=== PATIENT | female | born 2000 | race Caucasian/White ===

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

== ENCOUNTER 2022-01-24 12:51 | Emergency (ER) | payer OTHER, SELFPAY ==
[2022-01-24 12:53] VITALS: BP 135/100; PULSE 116; RESP 18; TEMP 36.4; O2SAT 98; BMI 22.1
[2022-01-24 13:52] VITALS: RESP 14
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
[2022-01-24] MEDS: LORazepam 2 MG/ML Syringe 1 MG IM (14:23)
[2022-01-24] MEDS: Ziprasidone IM 20 MG/ML VIAL IM (14:23)
[2022-01-24 14:52] VITALS: RESP 14
[2022-01-24 15:52] VITALS: RESP 16
[2022-01-24 16:05] LABS: Absolute Lymphocyte Count 1.15 X10^3/uL (0.83-4.51); Absolute Neutrophil Count 4.9 X10^3/uL (2.0-7.7); Basophil# 0.03 X10^3/uL; Basophil% 0.5 % (0-1); Eosinophil# 0.05 X10^3/uL; Eosinophils% 0.8 % (0-5); Hematocrit 38.7 % (37-47); Hemoglobin 12.9 g/dL (12.0-15.0); Lymphocyte # 1.15 X10^3/ul (0.83-4.51); Lymphocyte % 17.5 % (19-41); Mean Corp Hgb Conc 33.3 g/dL (32-36); Mean Corpuscular Hgb 29.9 pg (27.0-32.0); Mean Corpuscular Volume 89.6 fL (81-99); Mean Platelet Vol. 10.1 fl (6.2-12.0); Monocyte# 0.44 X10^3/uL; Monocyte% 6.7 % (0-10); NRBC Flagged by Analyzer 0 % (0-5); Neutrophil % 74.2 % (47-70); Platelet Count 222 K/mm3 (150-450); RBC Distribution Width CV 13.2 % (11.6-14.6); RBC Distribution Width SD 43.6 fl (35.1-43.9); Red Blood Count 4.32 M/mm3 (4.2-5.4); White Blood Count 6.6 K/mm3 (4.4-11.0)
[2022-01-24 16:21] LABS: Anion Gap 6 (5-15); BUN 15 mg/dL (7-18); BUN/Creat Ratio 19.3 RATIO (10-20); Chloride 110 mmol/L (98-107); Creatinine, Serum 0.78 mg/dL (0.55-1.02); EST Glomerular Filtration Rate 98 mL/min (>60); Est Glom Filt Rate - Afr Amer 119 mL/min (>60); Estimated Creatinine Clearance 81.95 ml/min; Glucose 79 mg/dL (74-106); Potassium 3.7 mmol/L (3.5-5.1); Sodium Level 140 mmol/L (136-145)
[2022-01-24 16:41] LABS: Internal QC Validated? YES +Cl - CLEAR BKGD; Pregnancy, Serum, hCG Quali. NEGATIVE Negative
[2022-01-24 16:55] LABS: Alcohol, Blood (Medical)-Serum < 3.0 mg/dL
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
[2022-01-24 17:57] VITALS: BP 119/85; PULSE 98; RESP 16; O2SAT 98
[2022-01-24 19:34] LABS: Amphetamine Urine VISTA NEGATIVE (<1000 ng/mL); Barbiturate Urine VISTA NEGATIVE (< 200 ng/mL); Benzodiazepine Urine VISTA NEGATIVE (< 200 ng/mL); Cocaine Urine VISTA NEGATIVE (< 300 ng/mL); Ecstacy Urine VISTA NEGATIVE (< 500 ng/mL); Methadone Urine VISTA NEGATIVE (< 300 ng/mL); PCP Urine VISTA NEGATIVE (< 25 ng/mL); THC Urine VISTA POSITIVE (< 50 ng/mL); Vista UDS pH Range 5
[2022-01-25 00:20] VITALS: BP 108/72; PULSE 72; RESP 16; O2SAT 98
[2022-01-25 03:18] VITALS: BP 104/60; PULSE 70; RESP 16
[2022-01-25 04:42] VITALS: RESP 18
[2022-01-25 07:30] VITALS: RESP 16
[2022-01-25 09:15] VITALS: BP 138/94; PULSE 93; RESP 16; O2SAT 98
[2022-01-25 11:25] VITALS: RESP 16
== END 2022-01-25 12:20 ==
PROVIDERS: Emergency Provider Emergency Medicine; Visit Provider Emergency Medicine
DX: F99 Mental disorder, not otherwise specified (principal); F17.210 Nicotine dependence, cigarettes, uncomplicated; F32.A Depression, unspecified; R06.00 Dyspnea, unspecified; R07.9 Chest pain, unspecified; F41.9 Anxiety disorder, unspecified; Z20.822 Contact with and (suspected) exposure to COVID-19
CPT/HCPCS: 80048; 80307; 82077; 84703; 85025; 87811; 99285; J3486